=== PATIENT | female | born 1960 | race African-American/Black ===

== ENCOUNTER 2017-03-07 12:27 | Emergency (ER) | payer OTHER ==
[2017-03-07] MEDS ORDERED: NS 0.9% 1000 ML* 2,000 ML IV ONE (13:16)
--- NOTE | 2017-03-07 14:03 | RAD ---
INDICATION: Cough, green sputum. COMPARISON: There are no prior studies available for comparison. TECHNIQUE: A portable view of the chest was obtained. FINDINGS: Cardiac and mediastinal contours appear to be within normal limits. The lungs are clear. No pleural effusion is seen. IMPRESSION: NO EVIDENCE FOR ACUTE DISEASE.
[2017-03-07 14:05] LABS: ABS Basophils 0 10^3/ul (0-0.2); ABS Eosinophils 0.1 10^3/ul (0-0.6); ABS Lymphocytes 1.5 10^3/ul (1.0-4.8); ABS Monocytes 0.3 10^3/ul (0-0.8); ABS Neutrophils 2.4 10^3/ul (1.5-7.7); ABS Nucleated RBC 0 10^3/ul; EGFR Non-African American 97.8 (>60); Eosinophil % 1.4 % (0-6); Hematocrit 35 % (35-47); Hemoglobin 11.2 g/dl (12.0-16.0); Lymphocyte % 34.7 % (25-47); Mean Corpuscular HGB Conc 32 g/dl (31-36); Mean Corpuscular Hemoglobin 25 pg (27-31); Mean Corpuscular Volume 79 fL (80-97); Mean Platelet Volume 7 um3 (7.4-10.4); Nucleated Red Blood Cells % 0.1; Platelet Count 215 10^3/ul (150-450); Red Blood Count 4.42 10^6/ul (4.0-5.4); Red Cell Distribution Width 16 % (10.5-15); White Blood Count 4.2 10^3/ul (3.5-10.8)
[2017-03-07 14:22] LABS: INR 0.94 (0.77-1.02)
[2017-03-07 14:32] LABS: Urine Appearance Cloudy; Urine Blood 3+ (Negative); Urine Color Yellow; Urine Ketones Trace (Negative); Urine Protein 1+(30 mg/dL) (Negative); Urine Specific Gravity 1.026 (1.010-1.030); Urine Urobilinogen Negative (Negative)
--- NOTE | 2017-03-07 14:51 | RAD ---
INDICATION: Postmenopausal vaginal bleeding. COMPARISON: Comparison is made with a prior pelvic ultrasound from November 16, 2015. TECHNIQUE: Multiple real-time transvaginal images of the pelvis were obtained. FINDINGS: The uterus is retroflexed and overall normal in size measuring 7.7 x 4.7 x 5.1 cm. The endometrial echo appears slightly thickened measuring up to 7 mm in thickness. There is a poorly defined hypoechoic area in the fundus of the uterus suspicious for a large fibroid measuring 4.2 x 5.1 x 4.7 cm in size. This is not well seen on the prior study. There is also a small hyperechoic area in the posterior fundus of the uterus measuring 0.6 x 0.5 cm in size which is unchanged suspicious for a small additional fibroid. The ovaries were not visualized. There is a trace amount of free intraperitoneal fluid adjacent to the posterior aspect of the uterus. IMPRESSION: 1. MILDLY THICKENED ENDOMETRIUM RECOMMEND GYNECOLOGIC CONSULTATION FOR FURTHER EVALUATION PATIENT. 2. PROBABLE FUNDAL FIBROID ALTHOUGH NOT WELL-DEFINED. RECOMMEND AN OUTPATIENT MRI OF THE PELVIS WITHOUT AND WITH CONTRAST FOR FURTHER EVALUATION. 3. THE OVARIES WERE NOT VISUALIZED.
--- NOTE | 2017-03-07 15:47 | ED ---
Cristofer Hassan Tecjoon, scribed for Orlando Rizo MD on 03/07/17 at 1329 . GI/ HPI - HPI Summary HPI Summary: This patient is a 56 year old female presenting to [facility] with a chief complaint of vaginal bleeding since this morning approximately 0730. Patient states that she had a DNC on January 2016 and went through menopause at 54-55 years old. Patient states that she has used 2 pads in 6 hours and repeatedly states the bleeding is pretty heavy. The pain is described as cramping. The pain is rated 8/10 in severity. Symptoms aggravated by cough. Symptoms alleviated by nothing. In addition to the bleeding, patient states cold symptoms since 4 days ago. Patient additionally reports lightheadedness, abd pain, wheezing, productive cough w/ green phlegm, chest pain. Patient denies SOB, diarrhea, dysuria - History of Current Complaint Chief Complaint: EDAbdPain Time Seen by Provider: 03/07/17 12:53 Stated Complaint: ABD PAIN/VAG BLEEDING Hx Obtained From: Patient Onset/Duration: Started Hours Ago - 6, Still Present Timing: Constant Number of Pads per Day: 2 - in 6 hours Pain Intensity: 8 - /10 Location of Pain: Diffuse, Other Associated Signs and Symptoms: Positive: Negative - SOB, diarrhea, dysuria, Other: - lightheadedness, abd pain, wheezing, productive cough w/ green phlegm, chest pain - Allergy/Home Medications Allergies/Adverse Reactions: Allergies Allergy/AdvReac Type Severity Reaction Status Date / Time Hydrocodone Allergy Severe Vomiting Verified 08/22/16 09:53 PMH/Surg Hx/FS Hx/Imm Hx Previously Healthy: No Endocrine/Hematology History: Reports: Hx Anemia Denies: Hx Anticoagulant Therapy, Hx Blood Disorders, Hx Diabetes, Hx Sickle Cell Disease, Hx Thyroid Disease Cardiovascular History: Reports: Hx Hypertension - ON MEDS Denies: Hx Pacemaker/ICD, Other Cardiovascular Problems/Disorders Respiratory History: Denies: Other Respiratory Problems/Disorders GI History: Denies: Other GI Disorders History: Denies: Hx Renal Disease Musculoskeletal History: Reports: Hx Arthritis - LEGS, HIPS, KNEES Denies: Other Musculoskeletal History Sensory History: Denies: Hx Contacts or Glasses, Hx Hearing Aid Opthamlomology History: Denies: Hx Contacts or Glasses Neurological History: Denies: Other Neuro Impairments/Disorders Psychiatric History: Reports: Hx Anxiety - NO MEDS Denies: Hx Panic Disorder - Cancer History Hx Chemotherapy: No Hx Radiation Therapy: No - Surgical History Surgery Procedure, Year, and Place: CERVICAL POLYPS REMOVED, [facility]. D/C, [facility] Hx Anesthesia Reactions: No - Immunization History Date of Tetanus Vaccine: unknown Date of Influenza Vaccine: 12/16 Immunizations Up to Date: Yes Infectious Disease History: No Infectious Disease History: Denies: Traveled Outside the in Last 30 Days - Family History Known Family History: Positive: Hypertension - Social History Lives: Alone Alcohol Use: None Hx Substance Use: No Substance Use Type: Reports: None Hx Tobacco Use: No Smoking Status (MU): Never Smoked Tobacco Have You Smoked in the Last Year: No Review of Systems Positive: Chest Pain Positive: Cough, Other - wheezing. Negative: Shortness Of Breath Positive: Abdominal Pain. Negative: Diarrhea Genitourinary: Other - vaginal bleeding Negative: dysuria Neurological: Other - lightheadedness All Other Systems Reviewed And Are Negative: Yes Physical Exam - Summary Physical Exam Summary: General: well-appearing, no pain distress Skin: warm, color reflects adequate perfusion, dry Head: normal Eyes: EOMI, SAVANNA ENT: rhinorrhea Neck: supple, nontender Respiratory: CTA, breath sounds present Cardiovascular: RRR Abdomen: minimal tenderness in lower abdomen to palpation Bowel: present Musculoskeletal: normal, strength/ROM intact Neurological: normal, sensory/motor intact, A&O x3 Psychological: affect/mood appropriate Triage Information Reviewed: Yes Vital Signs On Initial Exam: Initial Vitals Temp Pulse Resp BP Pulse Ox 97.7 F 89 18 119/73 97 03/07/17 12:46 03/07/17 12:46 03/07/17 12:46 03/07/17 12:46 03/07/17 12:46 Vital Signs Reviewed: Yes - [place] Coma Scale Coma Scale Total: 15 Diagnostics - Vital Signs Vital Signs Temp Pulse Resp BP Pulse Ox 03/07/17 12:56 97.7 F 102 18 119/73 97 03/07/17 12:46 97.7 F 89 18 119/73 97 - Laboratory Lab Results: Lab Results 03/07/17 03/07/17 03/07/17 Range/Units 13:30 13:38 13:38 WBC (3.5-10.8) 10^3/ul RBC (4.0-5.4) 10^6/ul Hgb (12.0-16.0) g/dl Hct (35-47) % MCV (80-97) fL MCH (27-31) pg MCHC (31-36) g/dl RDW (10.5-15) % Plt Count (150-450) 10^3/ul MPV (7.4-10.4) um3 Neut % (Auto) (38-83) % Lymph % (Auto) (25-47) % [place] % (Auto) (1-9) % Eos % (Auto) (0-6) % Baso % (Auto) (0-2) % Absolute Neuts (auto) (1.5-7.7) 10^3/ul Absolute Lymphs (auto) (1.0-4.8) 10^3/ul Absolute Monos (auto) (0-0.8) 10^3/ul Absolute Eos (auto) (0-0.6) 10^3/ul Absolute Basos (auto) (0-0.2) 10^3/ul Absolute Nucleated RBC 10^3/ul Nucleated RBC % INR (Anticoag Therapy) 0.94 (0.77-1.02) APTT 30.7 (26.0-36.3) seconds Sodium (133-145) mmol/L Potassium (3.5-5.0) mmol/L Chloride (101-111) mmol/L Carbon Dioxide (22-32) mmol/L Anion Gap (2-11) mmol/L BUN (6-24) mg/dL Creatinine (0.51-0.95) mg/dL Est GFR ( Amer) (>60) Est GFR (Non-Af Amer) (>60) BUN/Creatinine Ratio (8-20) Glucose (70-100) mg/dL Lactic Acid (0.5-2.0) mmol/L Calcium (8.6-10.3) mg/dL Total Bilirubin (0.2-1.0) mg/dL AST (13-39) U/L ALT (7-52) U/L Alkaline Phosphatase (34-104) U/L Troponin I (<0.04) ng/mL C-Reactive Protein (< 5.00) mg/L Total Protein (6.4-8.9) g/dL Albumin (3.2-5.2) g/dL Globulin (2-4) g/dL Albumin/Globulin Ratio (1-3) Lipase (11.0-82.0) U/L TSH (0.34-5.60) mcIU/mL Beta HCG, Quant mIU/mL Urine Color Yellow Urine Appearance Cloudy Urine pH 5.0 (5-9) Ur Specific [place] 1.026 (1.010-1.030) Urine Protein 1+(30 mg/dl) H (Negative) Urine Ketones Trace H (Negative) Urine Blood 3+ H (Negative) Urine Nitrate Negative (Negative) Urine Bilirubin Negative (Negative) Urine Urobilinogen Negative (Negative) Ur Leukocyte Esterase Negative (Negative) Urine WBC (Auto) 1+(6-10/hpf) H (Absent) Urine RBC (Auto) 3+(>10/hpf) H (Absent) Ur Squamous Epith Cells Present H (Absent) Urine Bacteria Absent (Absent) Urine Glucose Negative (Negative) Urine Ascorbic Acid * H (Negative) Influenza A (Rapid) (Negative) Influenza B (Rapid) (Negative) Blood Type AB Positive Antibody Screen Negative 03/07/17 03/07/17 03/07/17 Range/Units 13:38 13:38 13:38 WBC 4.2 (3.5-10.8) 10^3/ul RBC 4.42 (4.0-5.4) 10^6/ul Hgb 11.2 L (12.0-16.0) g/dl Hct 35 (35-47) % MCV 79 L (80-97) fL MCH 25 L (27-31) pg MCHC 32 (31-36) g/dl RDW 16 H (10.5-15) % Plt Count 215 (150-450) 10^3/ul MPV 7 L (7.4-10.4) um3 Neut % (Auto) 56.3 (38-83) % Lymph % (Auto) 34.7 (25-47) % Churchill % (Auto) 7.2 (1-9) % Eos % (Auto) 1.4 (0-6) % Baso % (Auto) 0.4 (0-2) % Absolute Neuts (auto) 2.4 (1.5-7.7) 10^3/ul Absolute Lymphs (auto) 1.5 (1.0-4.8) 10^3/ul Absolute Monos (auto) 0.3 (0-0.8) 10^3/ul Absolute Eos (auto) 0.1 (0-0.6) 10^3/ul Absolute Basos (auto) 0 (0-0.2) 10^3/ul Absolute Nucleated RBC 0 10^3/ul Nucleated RBC % 0.1 INR (Anticoag Therapy) (0.77-1.02) APTT (26.0-36.3) seconds Sodium 138 (133-145) mmol/L Potassium 3.9 (3.5-5.0) mmol/L Chloride 106 (101-111) mmol/L Carbon Dioxide 27 (22-32) mmol/L Anion Gap 5 (2-11) mmol/L BUN 11 (6-24) mg/dL Creatinine 0.63 (0.51-0.95) mg/dL Est GFR ( Amer) 125.7 (>60) Est GFR (Non-Af Amer) 97.8 (>60) BUN/Creatinine Ratio 17.5 (8-20) Glucose 107 H (70-100) mg/dL Lactic Acid 0.7 (0.5-2.0) mmol/L Calcium 8.4 L (8.6-10.3) mg/dL Total Bilirubin 0.30 (0.2-1.0) mg/dL AST 14 (13-39) U/L ALT 8 (7-52) U/L Alkaline Phosphatase 110 H (34-104) U/L Troponin I 0.00 (<0.04) ng/mL C-Reactive Protein 17.70 H (< 5.00) mg/L Total Protein 6.7 (6.4-8.9) g/dL Albumin 3.4 (3.2-5.2) g/dL Globulin 3.3 (2-4) g/dL Albumin/Globulin Ratio 1.0 (1-3) Lipase 18 (11.0-82.0) U/L TSH 1.03 (0.34-5.60) mcIU/mL Beta HCG, Quant < 0.60 mIU/mL Urine Color Urine Appearance Urine pH (5-9) Ur Specific [place] (1.010-1.030) Urine Protein (Negative) Urine Ketones (Negative) Urine Blood (Negative) Urine Nitrate (Negative) Urine Bilirubin (Negative) Urine Urobilinogen (Negative) Ur Leukocyte Esterase (Negative) Urine WBC (Auto) (Absent) Urine RBC (Auto) (Absent) Ur Squamous Epith Cells (Absent) Urine Bacteria (Absent) Urine Glucose (Negative) Urine Ascorbic Acid (Negative) Influenza A (Rapid) (Negative) Influenza B (Rapid) (Negative) Blood Type Antibody Screen 03/07/17 Range/Units 13:38 WBC (3.5-10.8) 10^3/ul RBC (4.0-5.4) 10^6/ul Hgb (12.0-16.0) g/dl Hct (35-47) % MCV (80-97) fL MCH (27-31) pg MCHC (31-36) g/dl RDW (10.5-15) % Plt Count (150-450) 10^3/ul MPV (7.4-10.4) um3 Neut % (Auto) (38-83) % Lymph % (Auto) (25-47) % Churchill % (Auto) (1-9) % Eos % (Auto) (0-6) % Baso % (Auto) (0-2) % Absolute Neuts (auto) (1.5-7.7) 10^3/ul Absolute Lymphs (auto) (1.0-4.8) 10^3/ul Absolute Monos (auto) (0-0.8) 10^3/ul Absolute Eos (auto) (0-0.6) 10^3/ul Absolute Basos (auto) (0-0.2) 10^3/ul Absolute Nucleated RBC 10^3/ul Nucleated RBC % INR (Anticoag Therapy) (0.77-1.02) APTT (26.0-36.3) seconds Sodium (133-145) mmol/L Potassium (3.5-5.0) mmol/L Chloride (101-111) mmol/L Carbon Dioxide (22-32) mmol/L Anion Gap (2-11) mmol/L BUN (6-24) mg/dL Creatinine (0.51-0.95) mg/dL Est GFR ( Amer) (>60) Est GFR (Non-Af Amer) (>60) BUN/Creatinine Ratio (8-20) Glucose (70-100) mg/dL Lactic Acid (0.5-2.0) mmol/L Calcium (8.6-10.3) mg/dL Total Bilirubin (0.2-1.0) mg/dL AST (13-39) U/L ALT (7-52) U/L Alkaline Phosphatase (34-104) U/L Troponin I (<0.04) ng/mL C-Reactive Protein (< 5.00) mg/L Total Protein (6.4-8.9) g/dL Albumin (3.2-5.2) g/dL Globulin (2-4) g/dL Albumin/Globulin Ratio (1-3) Lipase (11.0-82.0) U/L TSH (0.34-5.60) mcIU/mL Beta HCG, Quant mIU/mL Urine Color Urine Appearance Urine pH (5-9) Ur Specific [place] (1.010-1.030) Urine Protein (Negative) Urine Ketones (Negative) Urine Blood (Negative) Urine Nitrate (Negative) Urine Bilirubin (Negative) Urine Urobilinogen (Negative) Ur Leukocyte Esterase (Negative) Urine WBC (Auto) (Absent) Urine RBC (Auto) (Absent) Ur Squamous Epith Cells (Absent) Urine Bacteria (Absent) Urine Glucose (Negative) Urine Ascorbic Acid (Negative) Influenza A (Rapid) Negative (Negative) Influenza B (Rapid) Negative (Negative) Blood Type Antibody Screen Result Diagrams: 03/07/17 13:38 03/07/17 13:38 Lab Statement: Any lab studies that have been ordered have been reviewed, and results considered in the medical decision making process. - Radiology CXR Xray Interpretation: No Acute Changes - NO EVIDENCE FOR ACUTE DISEASE. ED physician has reviewed this radiology report. Radiology Interpretation Completed By: Radiologist - EKG 1327 Cardiac Rate: NL EKG Rhythm: Sinus Rhythm - 93 BPM EKG Interpretation: NSR (92 BPM), No ectopy, Flat T-wave in III and AVF - Additional Comments Diagnostic Additional Comments: US Transvaginal reveals, per radiologist, IMPRESSION: 1. MILDLY THICKENED ENDOMETRIUM RECOMMEND GYNECOLOGIC CONSULTATION FOR FURTHER EVALUATION PATIENT. 2. PROBABLE FUNDAL FIBROID ALTHOUGH NOT WELL-DEFINED. RECOMMEND AN OUTPATIENT MRI OF THE PELVIS WITHOUT AND WITH CONTRAST FOR FURTHER EVALUATION. 3. THE OVARIES WERE NOT VISUALIZED. ED Physician has reviewed this radiology report. GIGU Course/Dx - Course Course Of Treatment: This patient is a 56 year old female presenting to [facility] with a chief complaint of vaginal bleeding since this morning approximately 0730. Patient states that she had a DNC on January 2016 and went through menopause at 54-55 years old. Patient states that she has used 2 pads in 6 hours and repeatedly states the bleeding is pretty heavy. The pain is described as cramping. The pain is rated 8/10 in severity. Symptoms aggravated by cough. Symptoms alleviated by nothing. In addition to the bleeding, patient states cold symptoms since 4 days ago. Patient additionally reports lightheadedness, abd pain, wheezing, productive cough w/ green phlegm, chest pain. Patient denies SOB, diarrhea, dysuria. An EKG, taken 1327, reveals NSR ( 92 BPM), No ectopy, Flat T-wave in III and AVF. CXR reveals, per radiologist, NO EVIDENCE FOR ACUTE DISEASE. ED physician has reviewed this radiology report. US Transvaginal reveals, per radiologist, IMPRESSION: 1. MILDLY THICKENED ENDOMETRIUM RECOMMEND GYNECOLOGIC CONSULTATION FOR FURTHER EVALUATION PATIENT. 2. PROBABLE FUNDAL FIBROID ALTHOUGH NOT WELL-DEFINED. RECOMMEND AN OUTPATIENT MRI OF THE PELVIS WITHOUT AND WITH CONTRAST FOR FURTHER EVALUATION. 3. THE OVARIES WERE NOT VISUALIZED. ED Physician has reviewed this radiology report. Bloodwork Obtained. Urinalysis Obtained. Medications reviewed. Allergies noted. PATIENT REPORTS IS USING HER SECOND PAD TODAY. NOT LIGHTHEADED. SOME DYSURIA. WILL GIVE ABX FOR URI AND THE POSSIBLITY OF AN UTI. DISCUSSED RESULTS WITH PATIENT. F/U WITH PMD FOR URI AND OBGYN FOR POSTMENOPAUSAL VAGINAL BLEEDING. WE DISCUSSED RETURNING TO THE ED FOR ANY WORSENING OF HER SX TO INCLUDE INCREASED BLEEDING AND FEELING LIGHTHEADED. RETURN TO ED IF WORSE. NO CRITICAL CARE TIME. - Diagnoses Provider Diagnoses: Postmenopausal vaginal bleeding, Upper respiratory infection Discharge - Discharge Plan Condition: Stable Disposition: HOME Prescriptions: Amoxicillin/Clavulanate TAB* [Augmentin TAB 875*] 875 mg PO BID #20 tab Patient Education Materials: Dysfunctional Uterine Bleeding (ED), Upper Respiratory Infection (ED) Referrals: [facility] [Provider Group] Mayo Stuart MD [Primary Care Provider] - Nevaeh Valdez MD [Medical Doctor] - Additional Instructions: FOLLOW UP WITH YOUR PRIMARY CARE DOCTOR FOR YOUR UPPER RESPIRATORY TRACT INFECTION AND WITH OBGYN FOR YOU POSTMENOPAUSAL VAGINAL BLEEDING. RETURN TO THE EMERGENCY DEPARTMENT FOR ANY WORSENING OF YOUR CONDITION; EXCESSIVE BLEEDING OR PAIN, YOU FEEL LIKE PASSING OUT, YOU FEEL ILL, FEVERS OR QUESTIONS OR CONCERNS. The documentation as recorded by the Cristofer kim Tecjoon accurately reflects the service I personally performed and the decisions made by me, Orlando Rizo MD.
[2017-03-07 15:57] VITALS: BP 143/95
== END 2017-03-07 15:55 | disposition home or self-care (01) ==
LOC: ED 12:27
DX: N95.0 Postmenopausal bleeding (principal); J06.9 Acute upper respiratory infection, unspecified; R93.8 Abnormal findings on diagnostic imaging of other specified body structures; Z88.5 Allergy status to narcotic agent
CPT/HCPCS: 36415; 71045; 76830; 80053; 81003; 81015; 83605; 83690; 84443; 84484; 84702; 85025; 85610; 85730; 86140; 86850; 86900; 86901; 87502; 93005; 96360; 96361; 99283